=== PATIENT | female | born 1980 | race Caucasian/White ===

== ENCOUNTER → 2017-03-12 | Outpatient (CLI) | payer BC ==
[~2017-03-12] MED LIST: ABILIFY10 MG; BACTRIM DS TAB1 EACH PO; BACTROBAN CREAM30 G1 TOP; BACTROBAN22 GM TP; BENADRYL25 MG PO; CEFDINIR; CELEXA40 MG PO; CIPROFLOXACIN500 M1 PO; CLEOCIN HCL150 MG PO; CLEOCIN HCL300 MG; CLEOCIN HCL300 MG PO; CLINDAMYCIN HC150 MG PO; CLINDAMYCIN HC300 MG PO; CYMBALTA30 MG; DITROPAN XL10 M1 PO; DOXEPIN 10 MG C10 MG GT; DOXYCYCLINE; DOXYCYCLINE 10100 M1 PO; DOXYCYCLINE 10100 MG PO; DOXYCYCLINE150 MG; ERYTHROMYCIN E3.5 G1 OPHTHALMIC; EXPLANON; GABAPENTIN 100100 MG; HYDROCODONE-AP1 EAC6 PO; HYDROCORTISONE120 M1 TP; IBUPROFEN 800800 M1 PO; IBUPROFEN 800800 MG PO; LAMICTAL; LAMICTAL PO; LAMICTAL100 MG PO; LATUDA40 MG; LORTAB 5 MG/5001 TA1 PO; MACROBID 100 M100 M1 PO; METROGEL-VAGINA70 GM; MIRENA; NEURONTIN300 MG; NORCO 5-325 TA1 EAC1 PO; NORCO 5-325 TA1 EACH PO; NYSTATIN15 GM TP; ONDANSETRON HCL4 M2 PO; PERCOCET 10-321 EACH PO; PERCOCET 5-3251 EACH PO; PERCOCET 7.5-51 EACH PO; PERCOCET PO; PHENERGAN 25 MG25 MG PO; PREVACID30 MG PO; PROTONIX40 M1 PO; REXULTI1 MG PO; SORIATANE25 MG; STELARA90 MG/1 ML; TRILEPTAL150 MG PO; VISTARIL 25 MG25 M1 PO; ZANTAC 150MG T150 MG PO; ZOFRAN ODT4 MG PO; ZOFRAN4 MG PO
== END ==
LOC: RAD 16:13
DX: M51.34 Other intervertebral disc degeneration, thoracic region (principal); M25.78 Osteophyte, vertebrae; R05 Cough; R06.00 Dyspnea, unspecified

== ENCOUNTER → 2017-03-26 | Outpatient (CLI) | payer BC | LOC: SLEEPLAB 15:11 | DX: G47.33 Obstructive sleep apnea (adult) (pediatric) (principal) ==